=== PATIENT | male | born 1975 | race Hispanic/Latino ===

== ENCOUNTER 2017-09-22 09:58 | Outpatient (CLI) | payer OTHER ==
--- NOTE | 2017-09-22 12:16 | MRI ---
LEFT KNEE MRI WITHOUT IV CONTRAST: HISTORY: A 41-year-old male with left knee pain following a twisting injury approximately six weeks ago. FINDINGS: Multiplanar, multisequence MRI examination of the left knee is performed. There is abnormal joint ef fusion with distention of the suprapatellar recess. Significant irregular cartilage loss and hypertr ophic osteophytosis changes are noted, most marked involving the medial compartment, followed by the femoral patellar compartment, with some prominent subchondral cystic changes and sclerosis of the med ial femoral condyle. There is a complex, macerated tear of the medial meniscus, involving the racing secretary ior horn and body, with some intrasubstance cystic changes within the body of the meniscus, and what appears to be a flap component at the level of the body of the meniscus as well. The lateral meniscu s appears unremarkable. The anterior and posterior cruciate ligaments, collateral ligament complexes , and quadriceps and patellar tendons are intact. There is a moderate amount of fluid within the lazaro p infrapatellar bursa. IMPRESSION: 1. Severe degenerative changes and articular cartilage loss of the medial compartment, followed by t he patellofemoral compartment. 2. Complex, somewhat macerated flap tear of the medial meniscus. 3. Joint effusion with distention of the suprapatellar recess. 4. Other findings as above. POS: DIANNE
== END 2017-09-22 09:59 | disposition home or self-care (01) ==
LOC: MRI 09:58
PROVIDERS: ATTEND Family Medicine
DX: S86.912D Strain of unspecified muscle(s) and tendon(s) at lower leg level, left leg, subsequent encounter (principal); M17.12 Unilateral primary osteoarthritis, left knee